=== PATIENT | female | born 1990 | race Hispanic/Latino ===

== ENCOUNTER 2017-04-17 03:39 | Emergency (ER) | payer OTHER ==
[2017-04-17 03:41] VITALS: BMI 23.9
[2017-04-17 03:45] VITALS: TEMP 97.3; O2SAT 100
--- NOTE | 2017-04-17 04:26 | ED PDOC ---
Upper Extremity Pain/Injury Time Seen by Provider: 04/17/17 04:01 Chief Complaint (Nursing): Finger,Hand,&Wrist Chief Complaint (Provider): left hand pain History Per: Patient History/Exam Limitations: no limitations Onset/Duration Of Symptoms: Mins Current Symptoms Are (Timing): Still Present Hands/Wrist (Pic): 1 - Tenderness, Swelling, Pain Worse W/Movement Additional History Per: Patient Additional Complaint(s): 26 y/o female presents with left hand pain status-post trip and fall. Patient states she tripped over curb and her body landed on her hand. Pain to digits 2- 5, worse with movement. Denies numbness/weakness left upper extremity. Past Medical History Reviewed: Historical Data, Nursing Documentation, Vital Signs Vital Signs: Last Vital Signs Temp 97.3 F L 04/17/17 03:44 Pulse 150 H 04/17/17 03:44 Resp BP 159/100 H 04/17/17 03:44 Pulse Ox 100 04/17/17 03:44 - Medical History PMH: No Chronic Diseases - Surgical History Surgical History: Tonsillectomy (Addenoidectomy) - Home Medications Home Medications: Ambulatory Orders Medication Instructions Recorded Ibuprofen [Motrin Tab] 1 tab PO Q6 PRN #20 tab 04/17/17 traMADol [Ultram] 50 mg PO Q8 PRN #12 tab 04/17/17 - Allergies Allergies/Adverse Reactions: Allergies Allergy/AdvReac Type Severity Reaction Status Date / Time No Known Allergies Allergy Verified 04/17/17 03:52 Review of Systems ROS Statement: Except As Marked, All Systems Reviewed And Found Negative Musculoskeletal: Positive for: Hand Pain (left) Physical Exam - Reviewed Nursing Documentation Reviewed: Yes Vital Signs Reviewed: Yes - Physical Exam Appears: Positive for: Well, Non-toxic, Uncomfortable Head Exam: Positive for: ATRAUMATIC, NORMAL INSPECTION, NORMOCEPHALIC Pulses-Radial (L): 2+ Pulses-Radial (R): 2+ Extremity: Positive for: Capillary Refill (<2 sec b/l UE), Swelling (left hand digits 2-5, 2-3 MCP's). Negative for: Normal ROM (unable to flex left digits 2- 5 due to pain/swelling) Neurologic/Psych: Positive for: Alert, Oriented. Negative for: Motor/Sensory Deficits - ECG O2 Sat by Pulse Oximetry: 100 - Progress ED Course And Treament: xray, ibuprofen EXAM: XR Left Hand Complete, 3 or More Views EXAM DATE/TIME: Exam ordered 04/17/2017 4:22 AM CLINICAL HISTORY: 26 years old, female; Injury or trauma; Fall; Initial encounter; Blunt trauma ( contusions or hematomas; Hand; Left; Additional info: Fall, pain TECHNIQUE: Frontal, lateral and oblique views of the left hand. COMPARISON: No relevant prior studies available. FINDINGS: Bones/joints: Intra-articular fracture of the proximal aspect of the proximal phalanx of the middle finger with mild dorsal angulation and slight displacement. Slightly displaced transverse fracture of the proximal aspect of the proximal phalanx of the ring finger. Minimal chip or avulsion of the volar articular margin of the middle phalanx of the index finger at the PIP joint. No dislocation. Soft tissues: Unremarkable. No radiopaque foreign body. IMPRESSION: 1. Slightly displaced and angulated intra-articular fracture of the proximal aspect of the proximal phalanx of the middle finger. 2. Slightly displaced and angulated fracture of the proximal aspect of the proximal phalanx of the ring finger. 3. Minimal chip or avulsion of the volar articular margin of the middle phalanx at the PIP joint of the index finger. Patient educated on findings, placed in ulnar gutter splint/sling by technician support engineer; checked by specifications writer. NV intact post splint application. Patient discharged with rx ibuprofen, tramadol. Advised hand follow up. Ice, elevate. Return precautions given. Disposition - Clinical Impression Clinical Impression: Fingers fractured - Patient ED Disposition Is Patient to be Admitted: No Counseled Patient/Family Regarding: Studies Performed, Diagnosis, Need For Followup, Rx Given - Disposition Referrals: Gus Choudhary MD [Staff Provider] - Disposition: Routine/Home Disposition Time: 05:55 Condition: STABLE Prescriptions: Ibuprofen [Motrin Tab] 1 tab PO Q6 PRN #20 tab PRN Reason: Pain, Moderate (4-7) traMADol [Ultram] 50 mg PO Q8 PRN #12 tab PRN Reason: Pain, Severe (8-10) Instructions: Finger Fracture (ED), Splint Care (ED) Forms: [place] (Telugu)
[2017-04-17] MEDS ORDERED: Oxycodone/Acetaminophen 5/325 mg Tab PO ONE (05:36)
[2017-04-17 05:52] VITALS: BP 126/32; PULSE 109; RESP 16
--- NOTE | 2017-04-17 13:13 | RAD ---
PROCEDURE: Left Hand Radiographs. HISTORY: fall, pain COMPARISON: None. FINDINGS: BONES: Minimally displaced, comminuted intra-articular fracture base of 3rd proximal phalanx. Nondisplaced transverse fracture base of 4th proximal phalanx. No definite intra-articular extension. No other fracture identified. JOINTS: Normal. No osteoarthritic changes. SOFT TISSUES: Normal. OTHER FINDINGS: None. IMPRESSION: Fracture base of 3rd and 4th proximal phalanges with comminution an intra articular extension of 3rd proximal phalangeal fracture.
== END 2017-04-17 06:00 | disposition home or self-care (01) ==
LOC: H.ER 03:39
DX: S62.613A Displaced fracture of proximal phalanx of left middle finger, initial encounter for closed fracture (principal); S62.615A Displaced fracture of proximal phalanx of left ring finger, initial encounter for closed fracture; W01.0XXA Fall on same level from slipping, tripping and stumbling without subsequent striking against object, initial encounter